=== PATIENT | female | born 1980 | race African-American/Black ===

== ENCOUNTER 2021-02-26 11:13 | Inpatient (IN) | payer OTHER ==
[~2021-02-26] VITALS: Ht 157.5 cm; Wt 104.0 kg
[2021-02-26 14:00] VITALS: BP 142/64
--- NOTE | 2021-02-26 14:43 | PDOC1 ---
History and Physical Date of Admission Date of Admission DATE: 02/26/21 TIME: 14:38 Identification/Chief Complaint Chief Complaint Chest pain Source Source: Chart review, Patient History of Present Illness History of Present Illness Patient is a 41-year-old female with past medical history coronary artery disease with stent, HIV, who presents as a transfer from [facility] due to chest pain. She reports nonexertional substernal chest pain that radiates to her back. Denies any aggravating or alleviating factors. Took home nitroglycerin without any improvement in her symptoms. Initial troponin at [facility] were negative but she was admitted for observation due to cardiac risk factors. She was seen by Cardiology SWING TYPE LATHE OPERATOR at [facility] and recommended to be transferred to [facility] for PCI. At the time of my evaluation patient currently complains of chest pain 03/18. Will admit patient for further medical management. Past Medical History Past Medical History CAD with stent, HIV, anxiety/depression, HTN Past Surgical History Past Surgical History Cholecystectomy, section, tubal ligation Family History Family History: Diabetes Social History Smoke: 1 pack per day ALCOHOL: occassional Drugs: Marijuana ROS Review of System GENERAL: No history of weight change, weakness or fevers. SKIN: No bruising, hair changes or rashes. EYES: No blurred, double or loss of vision. NOSE AND THROAT: No history of nosebleeds, hoarseness or sore throat. HEART: Chest pain. Denies palpitations. LUNGS: Denies cough, hemoptysis, wheezing or shortness of breath. GASTROINTESTINAL: Denies nausea, vomiting, abdominal pain. GENITOURINARY: Denies dysuria, frequency, urgency, hematuria. NEUROLOGIC: Denies history of numbness, tingling, tremor or weakness. PSYCHIATRIC: Anxiety and depression. ENDOCRINE: No history of heat or cold intolerance, polyuria or polydipsia. EXTREMITIES: Denies muscle weakness, joint pain, pain on walking or stiffness. Physical Exam Physical Exam General: Alert, Oriented X3, Cooperative, mild distress HEENT: PERRLA, EOMI Lungs: Clear to auscultation, Normal air movement Heart: RRR, no murmurs Cardiovascular: S1, S2 Abdomen: Normal bowel sounds, Soft, No tenderness Extremities: No clubbing, No cyanosis Skin: No rashes, No significant lesion Neuro: Normal speech, Normal tone, Sensation intact Psych/Mental Status: Mental status NL, anxious appearing. VTE Prophylaxis Ordered VTE Prophylaxis Devices: No VTE Pharmacological Prophylaxi: Yes Assessment/Plan Assessment/Plan Coronary artery disease HIV HTN Anxiety/Depression Plan: Patient is scheduled for left heart cath tomorrow Morphine, nitroglycerin as needed Discussed switching her SSRI from Prozac to Lexapro as to not decrease the efficacy of her Plavix, and patient is agreeable. Patient may take her home HIV medication Ativan as needed Resume home medications FEN - Cardiac diet PPX - Heparin FULL CODE Dispo - inpatient for above Justifications for Admission Other Justification GONZALEZ PETERS MD Feb 26, 2021 14:43
[2021-02-26] MEDS ORDERED: ESCITALOPRAM OX10 MG PO (15:13)
[2021-02-26] MEDS ORDERED: MAGNESIUM HYDROXIDE 2,400 MG/30 ML ORAL.SUSP. PO PRN (15:30)
[2021-02-26] MEDS ORDERED: ONDANSETRON PF 4 MG/2 ML VIAL. IVP PRN (15:30)
[2021-02-26] MEDS ORDERED: MAG HYDROX/ALUMINUM HYD/SIMETH 30 ML ORAL.SUSP PO PRN (15:30)
[2021-02-26] MEDS ORDERED: NITROGLYCERIN SUBLINGUAL 0.4 MG BOTTLE OF 25. SL PRN (15:30)
[2021-02-26] MEDS ORDERED: ACETAMINOPHEN 325 MG TABLET. PO PRN (15:30)
[2021-02-26] MEDS ORDERED: CALCIUM CARBONATE 500 MG TAB.CHEW PO PRN (15:30)
[2021-02-26] MEDS: MORPHINE SULFATE 4 MG/ML INJ. IV PRN ×3 (15:53→22:07)
[2021-02-26] MEDS: NICOTINE 21MG PATCH. TD SCH (15:56)
[2021-02-26] MEDS ORDERED: ATEN1TAB4 PO (17:59)
[2021-02-26] MEDS ORDERED: CLOP75TA PO (17:59)
[2021-02-26] MEDS ORDERED: EMTR1TAB9 PO (17:59)
[2021-02-26] MEDS ORDERED: LISI10TA16 PO (17:59)
[2021-02-26] MEDS ORDERED: FLUO40CA2 PO (17:59)
[2021-02-26] MEDS: HYDROcodone/APAP 5/325MG 1 TAB TABLET PO PRN (18:22)
[2021-02-26] MEDS: COMPLERA PO SCH (18:22)
[2021-02-26] MEDS: LISINOPRIL 10 MG TABLET PO SCH (18:22)
[2021-02-26] MEDS: CITALOPRAM 20 MG TABLET. PO SCH (18:22)
[2021-02-26 19:45] VITALS: BP 132/86
--- NOTE | 2021-02-26 20:17 | NUR ---
The patient, SHERRY SUNSHINE, 41 y/o, F admitted by GONZALEZ PETERS MD with Chest Pain, was given written information regarding hospital policies, unit procedures and contact persons. Valuables were checked and left with patient. Patient brought three packs of cigarettes and her medication box which is in the medication room on the unit.
[2021-02-26] MEDS: HEPARIN for SUB-Q USE 5,000 UNIT/ML VIAL. SQ SCH (21:14)
[2021-02-26] MEDS: ZOLPIDEM 5 MG TABLET. PO PRN (22:06)
[2021-02-26 22:45] VITALS: BP 175/70
[2021-02-27] VITALS (14 sets, daily range): BP systolic 104–145; BP diastolic 62–93
[2021-02-27] MEDS: HYDROcodone/APAP 5/325MG 1 TAB TABLET PO PRN ×3 (03:23→16:26)
[2021-02-27] MEDS: MORPHINE SULFATE 4 MG/ML INJ. IV PRN ×2 (05:12→08:04)
[2021-02-27] MEDS: HEPARIN for SUB-Q USE 5,000 UNIT/ML VIAL. SQ SCH ×3 (05:18→21:41)
[2021-02-27] MEDS ORDERED: IOHEXOL 300 MG/ML 100ML VIAL. ONE (07:41)
[2021-02-27] MEDS ORDERED: LIDOCAINE 1% PF 2 ML VIAL. ONE (07:41)
[2021-02-27] MEDS ORDERED: HEPARIN for ARTERIAL LINE 1,500 ML ONE (07:41)
[2021-02-27] MEDS ORDERED: fentaNYL PF VIAL 100 MCG/2 ML VIAL ONE (08:15)
[2021-02-27] MEDS ORDERED: MIDAZOLAM HCL/PF 2 MG/2 ML VIAL. ONE (08:15)
[2021-02-27] MEDS ORDERED: HEPARIN for IV BOLUS 10,000 UNIT/10 ML VIAL. ONE (08:16)
[2021-02-27] MEDS ORDERED: VERAPAMIL 5 MG/2 ML VIAL. ONE (08:16)
[2021-02-27] MEDS ORDERED: NITROGLYCERIN 200 MCG/2 ML SYRINGE FOR CATH/VASC LAB. ONE (08:16)
[2021-02-27] MEDS ORDERED: LIDOCAINE 1% PF 2 ML VIAL. INJ ONE (09:00)
[2021-02-27] MEDS ORDERED: MIDAZOLAM HCL/PF 2 MG/2 ML VIAL. IV ONE (09:00)
[2021-02-27] MEDS ORDERED: NITROGLYCERIN 200 MCG/2 ML SYRINGE FOR CATH/VASC LAB. IART ONE (09:00)
[2021-02-27] MEDS ORDERED: IOHEXOL 300 MG/ML 100ML VIAL. IART ONE (09:00)
[2021-02-27] MEDS ORDERED: NON FORMULARY ITEM (Escitalopram Oxalate 1 TAB) PO SCH (09:00)
[2021-02-27] MEDS: NICOTINE 21MG PATCH. TD SCH (09:00)
[2021-02-27] MEDS ORDERED: VERAPAMIL 5 MG/2 ML VIAL. IART ONE (09:00)
[2021-02-27] MEDS ORDERED: HEPARIN for IV BOLUS 10,000 UNIT/10 ML VIAL. IART ONE (09:00)
[2021-02-27] MEDS ORDERED: fentaNYL PF VIAL 100 MCG/2 ML VIAL IV ONE (09:00)
[2021-02-27] MEDS ORDERED: ALTEPLASE 2 MG VIAL INT CAT ONE ×2 (09:15)
--- NOTE | 2021-02-27 09:21 | PDOC ---
MODERATE SEDATION ASSESSMENT RISKS/ALTERNATIVES Risks/Alternatives Risks and alternatives of this type of sedation and procedure discussed with: RISK/ALTERNATIVES: Patient H & P ON CHART H & P H & P on chart and reviewed for co-morbid conditions and appropriate labs. H&P ON CHART: Yes STATUS PREG STATUS ASSESSED: N/A MEDS/ALLERGIES REVIEWED Meds/Allergies Reviewed Medications and Allergies including time and route of recently administered narcotics and sedatives. MEDS/ALLERGIES REVIEWED: Yes ASA RATING ASA RATING: II AIRWAY ASSESSMENT Airway Assessment Airway patency, oral function limitations, presence of caps, crowns, dentures, partials, and ability to extend neck assessed. AIRWAY ASSESSMENT: Yes MALLAMPATI SCORE MALLAMPATI SCORE: II PRE-SEDATION ASSESSMENT PRE-SEDATION ASSESSMENT: Yes LIEN GARCIA MD Feb 27, 2021 09:20
[2021-02-27] MEDS ORDERED: CONTRAST GIVEN. MC PRN (09:30)
--- NOTE | 2021-02-27 09:53 | CARD ---
MR#: [id number] Date of Study: 02/27/2021 Ordering Physician: LIEN BOB, Referring Physician: LIEN BOB, Tech: RT Luis(R)() APPROVED REPORT Technologist: RT Luis(R)() Nurse: Lisandra Lees RN Procedure(s) performed: MODERATE SEDATION TIME: 35 MINUTES FLUORO TIME: 2.6 MIN DOSE: 62.1 GYCM2 CONTRAST: 60CC OMNI LHC, Coronary angiography, Left ventriculogram [facility] Clinical Frailty Scale [facility] Clinical Frailty Scale: Managing Well Heart Failure Heart Failure: Yes If Yes, Newly Diagnosed: No If Yes, HF Type: Diastolic If Yes, NYHA Class: Class II CASE TECHNIQUE IV conscious sedation was used throughout procedure with appropriate monitoring and was performed in the presence of a registered nurse who was an independent trained observer other than the physician p erforming the procedure. During this case, Fluoroscopy and low osmolar contrast were used for imaging . Specimen(s) Removed: N/A Estimated Blood loss: 15 cc's. PROCEDURE NARRATIVE Clinical information: 41 y.o woman with chest pain and prior PCI presents for further evaluation of unstable angina. Informed consent: Written informed consent was obtained from the patient after adequate discussion of the risks and binh efits of the procedure. Procedure details: ACCESS: The right wrist was prepped and draped in usual sterile fashion. Under 1% lidocaine local anesthesia a 6 Lithuanian Terumo sheath was placed in the right radial artery via the Seldinger technique. DIAGNOSTIC ANGIOGRAPHY: Right and left coronary arteries were engaged with a 6 Lithuanian TIG catheter. Diagnostic angiography i n multiple views were obtained. Next, a 6 Lithuanian pigtail catheter was placed in the left ventricle a nd a LVEDP was measured. A pullback was performed after left ventriculography. All catheters were e xchanged over J-tip guidewire. FINDINGS: ======= Aorta: 110/80 LVEDP: 15 mmHg Left ventriculogram: Ejection fraction 55% Normal wall motion without any evidence of aortic or mitral insufficiency. Coronary angiography: LM: Large caliber vessel with normal angiographic appearance LAD: Large caliber vessel with a mid 30% stenosis. D1: Small caliber vessel with mild luminal irregularities. LCX: Moderate caliber non-dominant vessel with mid 50-60% stenosis prior to a patent distal stent. Th e distal LCx is small in caliber. OM1: Moderate caliber vessel with mild luminal irregularities. RCA: Moderate caliber vessel with mild luminal irregularities. RPDA: Very small caliber vessel with mild luminal irregularities. CLOSURE: At case completion the right radial sheath was removed and a Terumo radial band was applied with 11 m L of air. Hemostasis was achieved. COMPLICATIONS: No acute complications noted Conclusion 1. Normal left sided filling pressures. 2. Normal LV systolic function. EF 55% 3. One vessel coronary disease. Recommendations Aggressive Medical Therapy Signed by : Lien Bob, Electronically Approved : 02/27/2021 09:52:41
--- NOTE | 2021-02-27 12:51 | PDOC ---
[employer] PROGRESS NOTE Date of Service DOS: DATE: 02/27/21 TIME: 12:48 Chief Complaint Chief Complaint Coronary artery disease Unstable angina HIV HTN Anxiety/Depression Plan: Patient is scheduled for left heart cath tomorrow Morphine, nitroglycerin as needed Discussed switching her SSRI from Prozac to Lexapro as to not decrease the efficacy of her Plavix, and patient is agreeable. Patient may take her home HIV medication Ativan as needed Resume home medications FEN - Cardiac diet PPX - Heparin FULL CODE Dispo - inpatient for above History of Present Illness History of Present Illness Patient is a 41-year-old female with past medical history coronary artery disease with stent, HIV, who presents as a transfer from [facility] due to chest pain. She reports nonexertional substernal chest pain that radiates to her back. Denies any aggravating or alleviating factors. Took home nitroglyce rin without any improvement in her symptoms. Initial troponin at [facility] were negative but she was admitted for observation due to cardiac risk factors. She was seen by Cardiology POLICE STENOGRAPHER at [facility] and recommended to be transferred to [facility] for PCI. At the time of my evaluation patient currently complains of chest pain 03/18. Will admit patient for further medical management. 02/27/2021: Patient seen and evaluated bedside. She had left heart cath yesterday that showed one-vessel coronary disease, normal left-sided filling pressures, normal left ventricular systolic, EF 55%. She was recommended aggressive medical therapy. Patient still with complaints of chest pain. I believe plan per cardiology is to initiate Imdur and observe overnight. Discussed with RN. Vitals/I&O Vitals/I&O: Vital Signs Date Time Temp Pulse Resp B/P (MAP) Pulse Ox O2 Delivery O2 Flow Rate FiO2 02/27/21 11:14 100 Room Air 02/27/21 11:00 97.8 95 18 120/86 (97) 97.8 02/27/21 09:14 2.0 I & O 02/26/21 02/26/21 02/27/21 15:00 23:00 07:00 Intake Total 180 ml 0 ml Output Total 100 ml Balance 180 ml -100 ml Physical Exam General: Alert, Oriented X3, Cooperative, mild distress Heart: Regular rate Lungs: Clear Abdomen: Soft, No tenderness Extremities: No clubbing, No cyanosis Skin: No rashes, No breakdown Labs Labs: Laboratory Tests Test 02/26/21 18:30 SARS-CoV-2 Antigen (Rapid) Negative (NEGATIVE) Comment Review of Relevant I have reviewed the following items sandra (where applicable) has been applied. Medications: Current Medications Medications (Trade) Dose Ordered Sig/Marii Route PRN Reason Start Time Stop Time Status Last Admin Dose Admin Nicotine (Nicoderm Cq 21mg) 1 patch DAILY TD 02/26/21 15:30 02/26/21 15:56 Lorazepam (Ativan) 2 mg PRN Q6HRS PRN PO ANXIETY / AGITATION 02/26/21 15:30 02/27/21 11:15 Morphine Sulfate (Morphine Sulfate) 4 mg PRN Q2HR PRN IV PAIN 02/26/21 15:30 02/27/21 08:04 Nitroglycerin (Nitrostat) 0.4 mg PRN Q5MIN PRN SL CHEST PAIN 02/26/21 15:30 02/26/21 19:12 Zolpidem Tartrate (Ambien) 5 mg PRN QHS PRN PO INSOMNIA, MAY REPEAT IN 1HR 02/26/21 15:30 02/26/21 22:06 Acetaminophen/ Hydrocodone Bitart (Lortab 5/325) 1 tab PRN Q4HRS PRN PO MILD PAIN 1-3 02/26/21 15:30 02/27/21 11:14 Heparin Sodium (Porcine) (Heparin Sodium) 5,000 unit Q8HRS SQ 02/26/21 22:00 02/27/21 05:18 Non-Formulary Medication (NON FORMULARY ITEM (Complera)) 1 ea DAILYBFRSUP PO 02/26/21 18:30 02/26/21 18:22 Lisinopril (Prinivil) 10 mg DAILYBFRSUP PO 02/26/21 18:30 02/26/21 18:22 Citalopram Hydrobromide (CeleXA) 20 mg DAILYBFRSUP PO 02/26/21 18:30 02/26/21 18:22 Nitroglycerin (Nitroglycerin) 200 mcg 1X ONCE IART 02/27/21 09:00 02/27/21 09:11 DC 02/27/21 09:12 Verapamil HCl (Verapamil) 2.5 mg 1X ONCE IART 02/27/21 09:00 02/27/21 09:11 DC 02/27/21 09:12 Heparin Sodium (Porcine) (Heparin Sodium) 2,500 unit 1X ONCE IART 02/27/21 09:00 02/27/21 09:11 DC 02/27/21 09:14 Heparin Sodium/ Sodium Chloride (HEPARIN for ARTERIAL LINE FLUSH) 1,000 unit 1X ONCE IART 02/27/21 09:00 02/27/21 09:18 DC 02/27/21 09:11 Midazolam HCl (Versed) 2 mg 1X ONCE IV 02/27/21 09:00 02/27/21 09:18 DC 02/27/21 09:13 Fentanyl Citrate (Fentanyl 2ml Vial) 50 mcg 1X ONCE IV 02/27/21 09:00 02/27/21 09:18 DC 02/27/21 08:45 Iohexol (Omnipaque 300 Mg/ml) 100 ml 1X ONCE IART 02/27/21 09:00 02/27/21 09:18 DC 02/27/21 09:11 Lidocaine HCl (Xylocaine-Mpf 1% 2ml Vial) 2 ml 1X ONCE INJ 02/27/21 09:00 02/27/21 09:18 DC 02/27/21 09:11 Justifications for Admission Other Justification GONZALEZ PETERS MD Feb 27, 2021 12:51
--- NOTE | 2021-02-27 12:55 | NUR ---
SS following for discharge planning. SS reviewed pt chart and discussed with pt RN. Pt is from home and is currently on room air. Pt had heart cath on 02/27/2021. Med changes. Discharge plan is to home when medically ready for discharge. SS will continue to follow for discharge planning.
[2021-02-27] MEDS ORDERED: KETOROLAC 15 MG/ML VIAL. IVP ONE (15:00)
[2021-02-27] MEDS: CITALOPRAM 20 MG TABLET. PO SCH (16:26)
[2021-02-27] MEDS: COMPLERA PO SCH (16:28)
--- NOTE | 2021-02-27 16:35 | NUR ---
entered patients room after other RN stated that patient requested more pain medications d.t having severe chest pain. Found patient leaned over and crying while holding her chest. Patients is sitting at bedside asking what else we can do. This RN advised that patient heart catherization showed no complete occlusion, CT of chest is clear and CXR there fore we have no evidence of why she is having persistent chest pain that is not being managed with the multiple pain medications and routes shes received today. Patient stated that the pain pill makes her itch and the Toradol didn't work at all. Patient was still very tearful and requested to go home but with a script for pain medication and a work excuse. Advised patient that I would page PCP to see if he was available to speak with her at bedside this evening. Pgd and spoke with primary, received orders for new dose of pain medication and advised to keep patient overnight. Advised patient and
[2021-02-27] MEDS ORDERED: diphenhydrAMINE HCL 25 MG CAPSULE PO PRN (16:45)
--- NOTE | 2021-02-27 16:45 | NUR ---
Walked patient to bathroom. When she returned to bed, IV was out of arm. Documented and left out per patient request
[2021-02-27] MEDS ORDERED: FLUOXETINE HCL PO SCH (17:00)
[2021-02-27] MEDS: LISINOPRIL 10 MG TABLET PO SCH (17:00)
[2021-02-27] MEDS: HYDROcodone/APAP 7.5/325MG 1 TAB TABLET PO PRN (21:38)
[2021-02-27] MEDS: ZOLPIDEM 5 MG TABLET. PO PRN (21:38)
[2021-02-28 03:10] VITALS: BP 120/67
[2021-02-28] MEDS: HYDROcodone/APAP 7.5/325MG 1 TAB TABLET PO PRN ×2 (05:55→11:55)
[2021-02-28] MEDS: HEPARIN for SUB-Q USE 5,000 UNIT/ML VIAL. SQ SCH (05:58)
[2021-02-28 07:00] VITALS: BP 117/65
[2021-02-28] MEDS: NICOTINE 21MG PATCH. TD SCH (08:39)
[2021-02-28 11:00] VITALS: BP 155/91
[2021-02-28] MEDS ORDERED: METOPROLOL SUCC 24HR ER 25 MG TAB.ER.24H. PO SCH (11:00)
--- NOTE | 2021-02-28 11:16 | PDOC ---
[employer] PROGRESS NOTE Date of Service DOS: DATE: 02/28/21 TIME: 11:13 Chief Complaint Chief Complaint Coronary artery disease Unstable angina HIV HTN Anxiety/Depression Plan: Patient is scheduled for left heart cath tomorrow Morphine, nitroglycerin as needed Discussed switching her SSRI from Prozac to Lexapro as to not decrease the efficacy of her Plavix, and patient is agreeable. Patient may take her home HIV medication Ativan as needed Resume home medications FEN - Cardiac diet PPX - Heparin FULL CODE Dispo - inpatient for above History of Present Illness History of Present Illness Patient is a 41-year-old female with past medical history coronary artery disease with stent, HIV, who presents as a transfer from [facility] due to chest pain. She reports nonexertional substernal chest pain that radiates to her back. Denies any aggravating or alleviating factors. Took home nitroglyce rin without any improvement in her symptoms. Initial troponin at [facility] were negative but she was admitted for observation due to cardiac risk factors. She was seen by Cardiology JIG AND FIXTURE BUILDER at [facility] and recommended to be transferred to [facility] for PCI. At the time of my evaluation patient currently complains of chest pain 03/18. Will admit patient for further medical management. 02/27/2021: Patient seen and evaluated bedside. She had left heart cath yesterday that showed one-vessel coronary disease, normal left-sided filling pressures, normal left ventricular systolic, EF 55%. She was recommended aggressive medical therapy. Patient still with complaints of chest pain. I believe plan per cardiology is to initiate Imdur and observe overnight. Discussed with RN. 02/28/2021: Patient had some moderate improvement in her chest pain, but still present. Will discontinue lisinopril and add calcium channel shantelle and Toprol-XL. Recommend close follow-up with cardiology and PCP. Greater than 30 minutes was spent managing discharge this patient. Vitals/I&O Vitals/I&O: Vital Signs Date Time Temp Pulse Resp B/P (MAP) Pulse Ox O2 Delivery O2 Flow Rate FiO2 02/28/21 10:56 92 131/71 02/28/21 07:30 Room Air 02/28/21 07:00 98.1 18 97 98.1 02/27/21 20:00 2.0 I & O 02/27/21 02/27/21 02/28/21 15:00 23:00 07:00 Intake Total 360 ml 500 ml 600 ml Output Total 300 ml 225 ml Balance 360 ml 200 ml 375 ml Physical Exam General: Alert, Oriented X3, Cooperative, No acute distress Heart: Regular rate Lungs: Clear Abdomen: Soft, No tenderness Extremities: No clubbing, No cyanosis Skin: No rashes, No breakdown Comment Review of Relevant I have reviewed the following items sandra (where applicable) has been applied. Medications: Current Medications Medications (Trade) Dose Ordered Sig/Marii Route PRN Reason Start Time Stop Time Status Last Admin Dose Admin Ketorolac Tromethamine (Toradol 15mg Vial) 15 mg 1X ONCE IVP 02/27/21 15:00 02/27/21 15:01 DC 02/27/21 14:52 Diphenhydramine HCl (Benadryl) 25 mg PRN Q6HRS PRN PO ITCHING 02/27/21 16:45 02/27/21 21:38 Acetaminophen/ Hydrocodone Bitart (Lortab 7.5/325) 1 tab PRN Q6HRS PRN PO PAIN 02/27/21 16:45 02/28/21 05:55 Amlodipine Besylate (Norvasc) 5 mg DAILY PO 02/28/21 11:00 02/28/21 10:56 Metoprolol Succinate (Toprol Xl) 25 mg DAILY PO 02/28/21 11:00 02/28/21 10:56 Justifications for Admission Other Justification GONZALEZ PETERS MD Feb 28, 2021 11:16
--- NOTE | 2021-02-28 11:18 | PDOC3 ---
Discharge Summary Visit Information Date of Admission: Feb 26, 2021 Date of Discharge: Feb 28, 2021 Brief Hospital Course Allergies Allergies Coded Allergies Type Severity Reaction Last Updated Verified orange Allergy Intermediate 02/26/21 Yes Vital Signs Vital Signs Date Time Temp Pulse Resp B/P (MAP) Pulse Ox O2 Delivery O2 Flow Rate FiO2 02/28/21 10:56 92 131/71 02/28/21 07:30 Room Air 02/28/21 07:00 98.1 18 97 98.1 02/27/21 20:00 2.0 Lab Results Laboratory Tests Test 02/26/21 18:30 SARS-CoV-2 Antigen (Rapid) Negative (NEGATIVE) Brief Hospital Course Patient is a 41-year-old female with past medical history coronary artery disease with stent, HIV, who presents as a transfer from [facility] due to chest pain. She reports nonexertional substernal chest pain that radiates to her back. Denies any aggravating or alleviating factors. Took home nitroglycerin without any improvement in her symptoms. Initial troponin at [facility] were negative but she was admitted for observation due to cardiac risk factors. She was seen by Cardiology AVIATION ELECTRICAL TECHNICIAN at [facility] and recommended to be transferred to [facility] for PCI. At the time of my evaluation patient currently complains of chest pain 03/18. Will admit patient for further medical management. 02/27/2021: Patient seen and evaluated bedside. She had left heart cath yesterday that showed one-vessel coronary disease, normal left-sided filling pressures, normal left ventricular systolic, EF 55%. She was recommended aggressive medical therapy. Patient still with complaints of chest pain. I believe plan per cardiology is to initiate Imdur and observe overnight. Discussed with RN. 02/28/2021: Patient had some moderate improvement in her chest pain, but still present. Will discontinue lisinopril and add calcium channel shantelle and Toprol-XL. Recommend close follow-up with cardiology and PCP. Greater than 30 minutes was spent managing discharge this patient. Discharge Information Condition at Discharge: Stable Follow Up: Weeks Disposition/Orders: D/C to Home Scheduled Atenolol/Chlorthalidone (Atenolol-Chlorthalidone 100-25) 1 Each Tablet, 1 TAB PO DAILY for ANTIHYPERTENSIVE, (Reported) Entered as Reported by: ELLA GUERRERO on 02/26/211758 Last Taken: Unknown Dose on Unknown Date & Time Last Action: Reviewed on 02/26/211802 by ELLA GUERRERO Clopidogrel Bisulfate (Clopidogrel) 75 Mg Tablet, 1 TAB PO DAILY for THINNER, #90 Ref 1 (Reported) Entered as Reported by: ELLA GUERRERO on 02/26/211758 Last Taken: Unknown Dose on Unknown Date & Time Last Action: Reviewed on 02/26/211802 by ELLA GUERRERO Emtricitab/Rilpivirine/Tenofov (Complera Tablet) 1 Each Tablet, 1 TAB PO DAILYBFRSUP for hiv for 30 Days, #30 Ref 0 (Reported) Entered as Reported by: ELLA GUERRERO on 02/26/211758 Last Taken: Unknown Dose on Unknown Date & Time Last Action: Reviewed on 02/26/211802 by ELLA GUERRERO Escitalopram Oxalate (Escitalopram Oxalate) 10 Mg Tablet, 1 TAB PO DAILY for A nx/Dep, #30 Ref 3 May increase dose to 20 mg after 1 week. Max 20 mg/daily. Prescribed by: GONZALEZ PETERS MD on 02/26/211512 Last Action: Converted on 02/26/211803 by ELLA GUERRERO Lisinopril (Lisinopril) 10 Mg Tablet, 1 TAB PO DAILYBFRSUP for HTN, #30 Ref 5 (Reported) Entered as Reported by: ELLA GUERRERO on 02/26/211758 Last Action: Continued on 02/26/211803 by ELLA GUERRERO Justicifation of Admission Dx: Justifications for Admission: Justification of Admission Dx: Yes GONZALEZ PETERS MD Feb 28, 2021 11:18
[2021-02-28] MEDS ORDERED: ASPI-630 PO (11:26)
[2021-02-28] MEDS ORDERED: HYDR-2761 PO (11:26)
[2021-02-28] MEDS ORDERED: METO-239 PO (11:26)
[2021-02-28] MEDS ORDERED: DIPH25CA23 PO (11:26)
[2021-02-28] MEDS ORDERED: AMLO-186 PO (11:26)
--- NOTE | 2021-02-28 13:27 | NUR ---
Patient refused teaching on stopping smoking.
--- NOTE | 2021-02-28 13:28 | NUR ---
Discharge Note: SHERRY SUNSHINE OIL TROUGH Discharge instructions and discharge home medications reviewed with Patient and a copy given. All questions have been answered and understanding verbalized. The following instructions and handouts were given: Diet, CP, medications/new prescriptions and stopped meds, contact for Dr. Bob if she choses to follow with him, post cath teaching. Discontinued lines and drains: Patient has no IV. Patient discharged to Patient ambulated with nurse to front entrance and left by private vehicle.
--- NOTE | 2021-02-28 13:54 | NUR ---
SS following up with discharge planning. SS reviewed pt chart and discussed with pt RN. Pt is currently on room air. COVID19 negative. Pt had heart cath on 02/27/2021. Discharge order on the chart for home with self care.
== END 2021-02-28 13:30 | disposition home or self-care (01) | DRG 287 ==
LOC: 2 NORTH 14:08
PROVIDERS: ADMIT Family Medicine; ATTEND Family Medicine
PROC: 4A023N7 Measurement of Cardiac Sampling and Pressure, Left Heart, Percutaneous Approach (ICD-10-PCS; principal; 2021-02-27)
PROC: B2151ZZ Fluoroscopy of Left Heart using Low Osmolar Contrast (ICD-10-PCS; 2021-02-27)
PROC: B2111ZZ Fluoroscopy of Multiple Coronary Arteries using Low Osmolar Contrast (ICD-10-PCS; 2021-02-27)
DX: I25.110 Atherosclerotic heart disease of native coronary artery with unstable angina pectoris (principal); I50.30 Unspecified diastolic (congestive) heart failure; I10 Essential (primary) hypertension; F17.210 Nicotine dependence, cigarettes, uncomplicated; F32.9 Major depressive disorder, single episode, unspecified; F41.9 Anxiety disorder, unspecified; Z83.3 Family history of diabetes mellitus; Z95.5 Presence of coronary angioplasty implant and graft
CPT/HCPCS: 87426; 93458; 99152; 99153; C1894; J1644; J1885; J2250; J2270; J3010; J3490; Q9967; G0378; Q0163

== ENCOUNTER 2021-11-12 19:40 | Inpatient (IN) | payer OTHER ==
[~2021-11-12] VITALS: Ht 157.5 cm; Wt 110.2 kg
[~2021-11-12 19:40] MED LIST: AMLO-186 PO; ASPI-630 PO; ATEN1TAB4 PO; CLOP75TA PO; DIPH25CA23 PO; EMTR1TAB9 PO; ESCITALOPRAM OX10 MG PO; FLUO40CA2 PO; HYDR-2761 PO; LISI10TA16 PO; METO-239 PO
[2021-11-12 20:00] VITALS: BP 155/88
--- NOTE | 2021-11-12 20:00 | NUR ---
The patient, SHERRY SUNSHINE, 41 y/o, F admitted by CHRIS ARMANDO MD, was given written information regarding hospital policies, unit procedures and contact persons. Valuables were checked and documented. call light in place oriented to unit ,staff and poc pt c/o chest pain will medicate. pt alert and oriented x4 will cont to monitor pt safety and status. pmrn.
[2021-11-12] MEDS ORDERED: NICOTINE 21MG PATCH. TD PRN (20:45)
[2021-11-12] MEDS ORDERED: ACETAMINOPHEN 325 MG TABLET. PO PRN (20:45)
[2021-11-12] MEDS ORDERED: NITROGLYCERIN SUBLINGUAL 0.4 MG BOTTLE OF 25. SL PRN (20:45)
[2021-11-12] MEDS ORDERED: ONDANSETRON PF 4 MG/2 ML VIAL. IVP PRN (20:45)
[2021-11-12] MEDS: HYDROmorphone 2 MG/ML INJ. IVP PRN (21:30)
[2021-11-12 22:33] VITALS: BP 139/82
[2021-11-13] VITALS (9 sets, daily range): BP systolic 118–158; BP diastolic 71–101
[2021-11-13] MEDS ORDERED: ATEN1TAB4 PO (00:09)
[2021-11-13] MEDS ORDERED: IBUP-1007 PO (00:09)
[2021-11-13] MEDS ORDERED: ALBU2.5V8 IH (00:09)
[2021-11-13] MEDS ORDERED: HYDR12.58 PO (00:09)
[2021-11-13] MEDS ORDERED: FLUO40CA9 PO (00:09)
[2021-11-13] MEDS ORDERED: IODIXANOL 320 MG/ML 100 ML VIAL. ONE (07:40)
[2021-11-13] MEDS ORDERED: LIDOCAINE 1% PF 2 ML VIAL. ONE (07:40)
[2021-11-13] MEDS ORDERED: HEPARIN for ARTERIAL LINE 1,500 ML ONE (07:41)
[2021-11-13] MEDS: HYDROmorphone 2 MG/ML INJ. IVP PRN (07:51)
[2021-11-13] MEDS ORDERED: ASPIRIN CHEWABLE 81 MG TABLET. PO SCH (08:00)
[2021-11-13] MEDS ORDERED: CLOPIDOGREL BISULFATE 75 MG TABLET PO SCH (08:00)
[2021-11-13] MEDS ORDERED: HEPARIN for IV BOLUS 10,000 UNIT/10 ML VIAL. ONE (08:02)
[2021-11-13] MEDS ORDERED: MIDAZOLAM HCL/PF 2 MG/2 ML VIAL. ONE ×2 (08:02→08:40)
[2021-11-13] MEDS ORDERED: fentaNYL PF VIAL 100 MCG/2 ML VIAL ONE ×2 (08:02→08:40)
[2021-11-13] MEDS ORDERED: VERAPAMIL 5 MG/2 ML VIAL. ONE (08:02)
[2021-11-13] MEDS ORDERED: NITROGLYCERIN 200 MCG/2 ML SYRINGE FOR CATH/VASC LAB. ONE ×2 (08:03→08:41)
--- NOTE | 2021-11-13 08:26 | PDOC ---
MODERATE SEDATION ASSESSMENT RISKS/ALTERNATIVES Risks/Alternatives Risks and alternatives of this type of sedation and procedure discussed with: RISK/ALTERNATIVES: Patient H & P ON CHART H & P H & P on chart and reviewed for co-morbid conditions and appropriate labs. H&P ON CHART: Yes STATUS PREG STATUS ASSESSED: N/A MEDS/ALLERGIES REVIEWED Meds/Allergies Reviewed Medications and Allergies including time and route of recently administered narcotics and sedatives. MEDS/ALLERGIES REVIEWED: Yes ASA RATING ASA RATING: II AIRWAY ASSESSMENT Airway Assessment Airway patency, oral function limitations, presence of caps, crowns, dentures, partials, and ability to extend neck assessed. AIRWAY ASSESSMENT: Yes MALLAMPATI SCORE MALLAMPATI SCORE: II PRE-SEDATION ASSESSMENT PRE-SEDATION ASSESSMENT: Yes LIEN GARCIA MD Nov 13, 2021 08:26
[2021-11-13] MEDS ORDERED: MIDAZOLAM HCL/PF 2 MG/2 ML VIAL. IV ONE (09:00)
[2021-11-13] MEDS ORDERED: VERAPAMIL 5 MG/2 ML VIAL. IART ONE (09:00)
[2021-11-13] MEDS ORDERED: IODIXANOL 320 MG/ML 100 ML VIAL. IART ONE (09:00)
[2021-11-13] MEDS ORDERED: fentaNYL PF VIAL 100 MCG/2 ML VIAL IV ONE (09:00)
[2021-11-13] MEDS ORDERED: NITROGLYCERIN 200 MCG/2 ML SYRINGE FOR CATH/VASC LAB. IART ONE (09:00)
[2021-11-13] MEDS ORDERED: ATENOLOL 50 MG TABLET. PO SCH (09:00)
[2021-11-13] MEDS ORDERED: CHLORTHALIDONE 25 MG TABLET. PO SCH (09:00)
[2021-11-13] MEDS ORDERED: LIDOCAINE 1% PF 2 ML VIAL. INJ ONE (09:00)
[2021-11-13] MEDS ORDERED: FLUoxetine HCL 20 MG CAPSULE PO SCH (09:00)
[2021-11-13] MEDS ORDERED: HEPARIN for IV BOLUS 10,000 UNIT/10 ML VIAL. IART ONE (09:00)
[2021-11-13] MEDS ORDERED: CONTRAST GIVEN. MC PRN (09:15)
[2021-11-13] MEDS ORDERED: AMLO2.5T5 PO (11:36)
[2021-11-13] MEDS ORDERED: ATOR40TA PO (11:36)
[2021-11-13] MEDS ORDERED: ISOS30TA68 PO (11:36)
--- NOTE | 2021-11-13 12:36 | SSS ---
DATE OF SERVICE: 11/13/2021 ADMIT DATE: 11/12/2021 HISTORY OF PRESENT ILLNESS: The patient is a 41-year-old -[place] female patient who was transferred from [facility] where she was admitted yesterday with a complaint of chest pain that has been going on for the last 4 nights. She describes it as a pressure in the chest at the center and left side of the chest at nighttime only, associated pain in her left arm and upper back. Pain does not generally occur during daytime, just at nighttime. She has been taking nitro, which does improve her pain. Her left chest is sore and very tender upon palpation and the patient apparently is known to have history of coronary artery disease, status post PCI and stent deployment to the left circumflex artery. She was seen at [facility] last February for chest pain, underwent cardiac catheterization at that time. The cardiac catheterization revealed 1 vessel disease on the left circumflex with mid 50-60% stenosis prior to the patent distal stent. The patient reports compliance with aspirin and Plavix therapy, although ran out of Plavix 3 days prior to arrival. The patient was extensively investigated and has an EKG, which showed that she was in sinus rhythm with a heart rate of 108, normal axis, no ST segment elevation or depression. CT scan of the chest with contrast showed no evidence of acute pulmonary embolism. The heart is normal in size. No pericardial effusion. Thoracic aorta is normal in caliber. No aortic dissection. There is no mediastinal lymphadenopathy. The lungs are otherwise clear. No pleural effusion or pneumothorax. No axillary lymph nodes and upper abdomen is normal. There is no acute osseous abnormality except mild degenerative disk disease. She had 3 sets of cardiac enzymes that ruled acute myocardial infarction. She was seen, however, in consultation by the guest advisor who recommended transferring her to [facility] for cardiac catheterization. PAST MEDICAL HISTORY: Significant for coronary artery disease, hypertension, bronchial asthma, chronic pain syndrome, anxiety as well as HIV disease. PAST SURGICAL HISTORY: Significant for PCI with stent deployment. FAMILY HISTORY: Positive for heart disease. SOCIAL HISTORY: She lives with her family. She smokes less than a pack a day. Drinks alcohol occasionally. Does not use any drugs. ALLERGIES: SHE IS ALLERGIC TO ORANGE. MEDICATIONS: She is currently on the following medications: She is on Complera tablet 1 tablet daily for HIV, albuterol sulfate 2 puffs every 6 hours, Plavix 75 mg once a day, nitroglycerin 0.4 mg sublingually every 5 minutes, atenolol and chlorthalidone 100/25 one tablet daily, aspirin 81 mg once a day. She is also on ibuprofen 600 mg 3 times a day, naproxen 500 mg daily, fluoxetine 40 mg daily and potassium chloride 2 tablets daily. REVIEW OF SYSTEMS: As per history of present illness. PHYSICAL EXAMINATION: GENERAL: When I saw her today, she was resting slightly propped up in bed, in no apparent respiratory distress. No pallor, jaundice, cyanosis or thyromegaly. No jugular venous distention. No limb edema. VITAL SIGNS: Her heart rate was 94, blood pressure was 150/101, temperature was 97.8, her respiratory rate was 20 and oxygen saturation was 98% on 2 liters of oxygen. HEAD, EYES, EARS, NOSE, AND THROAT: Normocephalic, atraumatic. NECK: Supple. HEART: Normal first and second heart sounds. No gallop or murmur. CHEST: Clear to auscultation. No crepitation or rhonchi. ABDOMEN: Distended, soft, nontender. NEUROLOGIC: She was somewhat sleepy, but arousable. All cranial nerves intact. She moves extremities without difficulty. LABORATORY DATA: As of yesterday, her lab work showed a white cell count 7.6, hemoglobin 14, hematocrit 41, MCV 90 and platelet count of 261,000 with normal manual differential. Her chemistry showed a serum sodium 140, potassium 4.8, chloride 105, bicarbonate 24, anion gap of 11, BUN 10, creatinine 0.5. Estimated GFR was 164 mL per minute. Her glucose 95, calcium was 9. Total bilirubin, AST, ALT, alkaline phosphatase were normal. Total protein 6.4, albumin 3. Did have 4 sets of troponin, all of them were less than 20. The patient apparently underwent cardiac catheterization, which showed exactly the same finding last time. She has moderate caliber nondominant vessel with 50-60% stenosis of the left circumflex prior to patent distal stent. No intervention was recommended; however, the guest advisor recommended discharging the patient on amlodipine 2.5 mg once a day, Imdur 30 mg once a day, aspirin 81 mg once a day, Plavix 75 mg once a day and Lipitor 40 mg at bedtime and the patient will be followed in 3 months' time at the [facility] in [place]. FINAL DISCHARGE DIAGNOSES: Chest pain, stable finding on cardiac catheterization for second time, hypertension, hyperlipidemia and coronary artery disease, status post stent deployment, HIV, anxiety and depression. MINESH DR: Troy TID: [id number]
--- NOTE | 2021-11-13 14:44 | NUR ---
SS following for discharge planning. SS reviewed pt chart and discussed with pt RN. Pt is from home and is currently on room air. Cardiology following. Discharge order on the chart for home with self care.
--- NOTE | 2021-11-14 07:57 | CARD ---
MR#: [id number] Date of Study: 11/13/2021 Ordering Physician: LIEN BOB, Referring Physician: LIEN BOB, Tech: RT Caroline(R) APPROVED REPORT Technologist: RT Caroline(R) Nurse: Lisandra Lees RN Procedure(s) performed: MODERATE SEDATION TIME: 31 MINUTES DOSE: 72 GYCM2 CONTRAST: 66CC VISI Coronary angiography HISTORY previous PCI (The PCI date was ): hypertension, dyslipidemia. INDICATION The indication(s) include : unstable angina . [facility] Clinical Frailty Scale [facility] Clinical Frailty Scale: Mildly Frail Heart Failure Heart Failure: No CASE TECHNIQUE IV conscious sedation was used throughout procedure with appropriate monitoring and was performed in the presence of a registered nurse who was an independent trained observer other than the physician p erforming the procedure. During this case, Fluoroscopy and low osmolar contrast were used for imaging . Specimen(s) Removed: N/A Estimated Blood loss: 15 cc's. PROCEDURE NARRATIVE Clinical information: 41-year-old woman with a prior history of PCI to the distal left circumflex presented to the hospital with intractable chest pain. Despite significant chest pain her cardiac enzymes and EKG were comple tely unremarkable. Other evaluation with a CT of the chest was also unremarkable. The patient was r equesting cardiac catheterization and therefore she was brought to the catheterization laboratory. Procedure details: After appropriate informed consent the right wrist was prepped and draped in usual sterile fashion. Under 1% lidocaine local anesthesia a 6 [place] sheath was placed in the right radial artery. Diagnos tic angiography was then performed with a 6 [place] TIG catheter. At case completion the catheters an d sheaths were removed and hemostasis was achieved via manual compression. No acute complications Findings: Aorta 120/80 Coronary angiography: Left main is a large-caliber vessel with normal angiographic appearance LAD is a large-caliber hyperdominant vessel which wraps around the apex that has a proximal 30% steno sis D1 is a moderate caliber vessel with mild luminal irregularities Left circumflex is a moderate caliber codominant vessel with a patent stent in the distal segment raf or to a small caliber L PDA. Prior to the stent there is a 50 to 60% stenosis. This appears unchang ed from previous catheterization RCA is a moderate caliber codominant vessel with mild luminal irregularities Conclusion 1. One-vessel coronary artery disease mostly unchanged from prior angiogram in 2020 2. Plan for medical therapy for presumed noncardiac chest pain. Consider spasm given comorbidities such as obesity and hypertension. Recommendations Aggressive Medical Therapy Signed by : Lien Bob, Electronically Approved : 11/14/2021 07:57:05
== END 2021-11-13 16:20 | disposition home or self-care (01) | DRG 287 ==
LOC: 6 SOUTH 19:40
PROVIDERS: ADMIT Internal Medicine; ATTEND Internal Medicine
PROC: 4A023N7 Measurement of Cardiac Sampling and Pressure, Left Heart, Percutaneous Approach (ICD-10-PCS; principal; 2021-11-12)
PROC: B211YZZ Fluoroscopy of Multiple Coronary Arteries using Other Contrast (ICD-10-PCS; 2021-11-12)
DX: R07.89 Other chest pain (principal); B20 Human immunodeficiency virus [HIV] disease; I25.10 Atherosclerotic heart disease of native coronary artery without angina pectoris; E78.5 Hyperlipidemia, unspecified; F17.210 Nicotine dependence, cigarettes, uncomplicated; G89.4 Chronic pain syndrome; I10 Essential (primary) hypertension; J45.909 Unspecified asthma, uncomplicated; Z95.5 Presence of coronary angioplasty implant and graft; F32.A Depression, unspecified; F41.9 Anxiety disorder, unspecified; Z88.8 Allergy status to other drugs, medicaments and biological substances
CPT/HCPCS: 36415; 84484; 93454; 99152; 99153; C1769; C1894; J1170; J1644; J2250; J2405; J3010; J3490; Q9967; G0378